=== PATIENT | male | born 1975 | race Two or more races ===

== ENCOUNTER 2022-08-14 04:03 | Emergency (ER) | payer SELFPAY ==
[~2022-08-14] VITALS: Ht 182.9 cm; Wt 90.0 kg
[2022-08-14] MEDS ORDERED: IBUPROFEN 600 MG TABLET PO ONE (04:15)
[2022-08-14] MEDS ORDERED: AMOX TR/POT CLAV 875 MG/125 MG TABLET PO ONE (04:15)
[2022-08-14] MEDS ORDERED: NEOMYCIN/POLYMYXIN B/HYDROCORT 10 ML OTIC SOLUTION AU ONE (04:15)
[2022-08-14 04:17] VITALS: BP 134/75
[2022-08-14 04:31] LABS: COVID AG,FIA SOURCE NASOPHARYNGEAL
[2022-08-14] MEDS ORDERED: CORTSOL AU (04:33)
[2022-08-14] MEDS ORDERED: AMOX1TAB16 PO (04:33)
[2022-08-14 04:50] LABS: INFLUENZA TYPE A NEGATIVE FOR TYPE A (NEGATIVE); INFLUENZA TYPE B NEGATIVE FOR TYPE B (NEGATIVE)
[2022-08-14] MEDS ORDERED: CEPH-558 PO (05:30)
== END 2022-08-14 04:45 | disposition home or self-care (01) ==
LOC: EMS 04:06
DX: H60.93 Unspecified otitis externa, bilateral (principal); H66.93 Otitis media, unspecified, bilateral; Z20.822 Contact with and (suspected) exposure to COVID-19
CPT/HCPCS: 87804; 99283